=== PATIENT | male | born 1935 | race Caucasian/White ===

== ENCOUNTER 2020-11-06 16:29 | Emergency (ER) | payer OTHER ==
[~2020-11-06] VITALS: Ht 165.1 cm; Wt 81.6 kg
--- NOTE | 2020-11-06 16:30 | NUR ---
Patient wheelchair assisted to bed 11.
[2020-11-06 16:31] VITALS: BP 174/104
--- NOTE | 2020-11-06 17:00 | NUR ---
85/M brought in to ER by daughter with c/o shortness of breath. Daughter states patient has a chronic cough due to emphysema diagnosis but states he was coughing more than usual since last night. Daughter states patient stated he felt unwell this morning and his oxygen was reading in the low 80's on their home pulse oximeter. Patient appears slightly anxious and tachypneic, placed in gown on court recording monitor, patient oxygen saturation 94% on room air.
--- NOTE | 2020-11-06 17:04 | NUR ---
industrial technology education teacher at pt bedside.
[2020-11-06] MEDS ORDERED: PRED20TA5 PO (17:59)
--- NOTE | 2020-11-06 18:10 | NUR ---
dPatient discharged with v/s stable. Written and verbal after care instructions given and explained. Patient alert, oriented and verbalized understanding of instructions. Ambulatory with steady gait. All questions addressed prior to discharge. ID band removed. Patient advised to follow up with PMD. Rx of Prednisone given. Patient educated on indication of medication including possible reaction and side effects. Opportunity to ask questions provided and answered.
[2020-11-06 18:12] VITALS: BP 139/62
== END 2020-11-06 18:10 | disposition home or self-care (01) ==
LOC: MED 16:29
DX: J44.9 Chronic obstructive pulmonary disease, unspecified (principal); I10 Essential (primary) hypertension; Z98.890 Other specified postprocedural states
CPT/HCPCS: 71045; 99283

== ENCOUNTER 2022-04-18 12:11 | Inpatient (IN) | payer OTHER ==
[~2022-04-18] VITALS: Ht 162.6 cm; Wt 74.4 kg
[~2022-04-18 12:11] MED LIST: PRED20TA5 PO
[2022-04-18 12:20] VITALS: BP 159/66
--- NOTE | 2022-04-18 13:02 | NUR ---
PT W/C ASSISTED TO BED 1.
--- NOTE | 2022-04-18 13:06 | NUR ---
87/M WHEELCHAIR ASSISTED TO BED C/O SOB AND DIFFICULTY BREATHING ONSET 4 DAYS ACCOMPANIED BY HEADACHE AND COUGH. DENIES CHEST PAIN OR DIZZINESS. DENIES NVD OR FEVER. AAO4, ON CHILD WELFARE CONSULTANT AND ROOM AIR. PMH: EMPHYSEMA, CORONARY BYPASS SURGERY
--- NOTE | 2022-04-18 13:08 | NUR ---
EKG ALREADY DONE
--- NOTE | 2022-04-18 13:10 | NUR ---
BLOOD DRAWN BY FIELD COLLECTOR
[2022-04-18 13:26] LABS: HEMATOCRIT 36.9 % (36-52); HEMOGLOBIN 12.2 g/dL (12.0-18.0); MEAN CORPUSCULAR HEMOGLOBIN 32 pg (27-31); MEAN CORPUSCULAR HGB CONC 33 g/dL (33-37); MEAN CORPUSCULAR VOLUME 96.3 fL (80-94); PLATELET COUNT (AUTO) 60 K/uL (140-450); RED BLOOD CELL COUNT(AUTO) 3.83 MIL/uL (4.20-6.10); RED CELL DISTRIBUTION WIDTH 14.5 % (11.6-13.7); WHITE BLOOD COUNT (AUTO) 3.3 K/uL (4.8-10.8)
[2022-04-18 13:37] LABS: ALBUMIN 3.5 g/dL (3.4-5.0); ANION GAP 12.8 (8-16); ASPARTATE AMINOTRANSFERASE 21 U/L (15-37); CARBON DIOXIDE 29.8 mmol/L (21-32); CHLORIDE 102 mmol/L (98-107); CREATININE 1.5 mg/dL (0.6-1.3); GLUCOSE 199 mg/dL (74-106); POTASSIUM 4.6 mmol/L (3.5-5.1); SODIUM SERUM 140 mmol/L (136-145); TOTAL BILIRUBIN 0.4 mg/dL (0.0-1.0); UREA NITROGEN, BLOOD 19 mg/dL (7-18)
[2022-04-18 13:50] LABS: EOSINOPHILS % (MANUAL) 2 % (0-4); LYMPHOCYTES % (MANUAL) 18 % (20-46); MONOCYTES % (MANUAL) 8 % (5-12)
[2022-04-18] MEDS ORDERED: methylPREDNISolone SS 125 MG/2 ML VIAL IVP ONE (14:25)
[2022-04-18] MEDS ORDERED: ALBUTEROL SULFATE/IPRATROPIU 3 ML SOL IH ONE (14:25)
[2022-04-18] MEDS ORDERED: ASPIRIN 325 MG TAB PO ONE (14:30)
--- NOTE | 2022-04-18 14:34 | NUR ---
MICA COLLECTED AND SENT TO LAB
--- NOTE | 2022-04-18 14:49 | NUR ---
RT AT BEDSIDE FOR BR TX
[2022-04-18] MEDS ORDERED: CITA10TA11 PO (15:43)
[2022-04-18] MEDS ORDERED: METO25TE2 PO (15:43)
[2022-04-18] MEDS ORDERED: LOSA50TA66 PO (15:43)
[2022-04-18] MEDS ORDERED: APIX2.5 PO (15:43)
[2022-04-18] MEDS ORDERED: FURO-572 PO (15:43)
[2022-04-18] MEDS ORDERED: SIMV-372 PO (15:43)
[2022-04-18] MEDS ORDERED: ALBUTEROL 0.083% 2.5 MG/3 ML NEBU INH PRN (16:15)
--- NOTE | 2022-04-18 16:15 | NUR ---
Patient will be admitted to care of DR ALFARO. Admited to TELE. Will go to room 115. Belongings list completed. Report to CAMILLA CARMONA.
[2022-04-18] MEDS ORDERED: MAG SULF 2000 MG/WATER PREMIX 50 ML IV PRN (16:20)
[2022-04-18] MEDS ORDERED: POTASSIUM CHLORIDE 10 MEQ TABER PO PRN (16:20)
[2022-04-18] MEDS ORDERED: LORazepam 2 MG/ML VIAL IVP PRN (16:20)
[2022-04-18] MEDS ORDERED: ZOLPIDEM 10 MG TAB PO PRN (16:20)
[2022-04-18] MEDS ORDERED: DOCUSATE SODIUM 100 MG GELCAP PO PRN (16:20)
[2022-04-18] MEDS ORDERED: MORPHINE SULFATE 2 MG/ML SYR IVP PRN (16:20)
[2022-04-18] MEDS ORDERED: ONDANSETRON 4 MG/2 ML VIAL IVP PRN (16:20)
[2022-04-18] MEDS ORDERED: ACETAMINOPHEN 325 MG TAB PO PRN (16:20)
[2022-04-18 17:50] VITALS: BP 158/74
--- NOTE | 2022-04-18 17:50 | NUR ---
Admitted pt. from ED. transported via gurney. pt. is alert and oriented to name, place and situation. slovak speaking.pt. is Covid +, came in with c/o SOB. on O2 @3lpm via NC. pt. denies any difficulty breathing. assessment done and documented.pt encouraged to call staff if needed. verbalized understanding.
[2022-04-18 20:00] VITALS: BP 109/89
[2022-04-19] VITALS: BP 113/80
[2022-04-19 04:00] VITALS: BP 165/86
[2022-04-19 06:56] LABS: BASOPHILS % (AUTO) 0.2 % (0.0-2.0); HEMATOCRIT 37.4 % (36-52); HEMOGLOBIN 12.4 g/dL (12.0-18.0); LYMPHOCYTES # (AUTO) 0.5 K/uL (2.0-11.5); LYMPHOCYTES % (AUTO) 19.3 % (20.5-51.1); MEAN CORPUSCULAR HEMOGLOBIN 32 pg (27-31); MEAN CORPUSCULAR HGB CONC 33 g/dL (33-37); MEAN CORPUSCULAR VOLUME 96.3 fL (80-94); MONOCYTES # (AUTO) 0.1 K/uL (0.8-1.0); MONOCYTES % (AUTO) 4.8 % (1.7-9.3); NEUTROPHILS # (AUTO) 2.2 K/uL (1.8-7.7); NEUTROPHILS % (AUTO) 75.7 % (42.2-75.2); PLATELET COUNT (AUTO) 59 K/uL (140-450); RED BLOOD CELL COUNT(AUTO) 3.88 MIL/uL (4.20-6.10); RED CELL DISTRIBUTION WIDTH 14.5 % (11.6-13.7); WHITE BLOOD COUNT (AUTO) 2.8 K/uL (4.8-10.8)
--- NOTE | 2022-04-19 07:20 | NUR ---
PATIENT ALERT ABLE TO RESPONDS VERBALLY THAI SPEAKING. PATIENT ON 3 L/MIN VIA NASAL CANULA NO CONGESTION NOTED. IV SITE ON LEFT AC AMBROSE 20 SALINE LOCK. ALL SAFETY MEASURE IN PLACE.
[2022-04-19 07:42] LABS: ANION GAP 13.3 (8-16); CARBON DIOXIDE 28.6 mmol/L (21-32); CHLORIDE 104 mmol/L (98-107); CREATININE 1.3 mg/dL (0.6-1.3); GLUCOSE 150 mg/dL (74-106); POTASSIUM 4.9 mmol/L (3.5-5.1); SODIUM SERUM 141 mmol/L (136-145); UREA NITROGEN, BLOOD 20 mg/dL (7-18)
[2022-04-19 08:00] VITALS: BP 143/74
[2022-04-19] MEDS: LOSARTAN 50 MG TAB PO SCH (09:29)
[2022-04-19] MEDS: FUROSEMIDE 20 MG TAB PO SCH (09:30)
[2022-04-19] MEDS: ASCORBIC ACID 500 MG TAB PO SCH (09:30)
[2022-04-19] MEDS: METOPROLOL SUCCINATE 50 MG TABER PO SCH (09:31)
[2022-04-19] MEDS: CITALOPRAM 20 MG TAB PO SCH (09:31)
--- NOTE | 2022-04-19 09:36 | NUR ---
PATIENT FINISHED EATING BREAKFAST TOLERATED 90 % OF HIS MEAL. GIVEN DUE MEDICATION TOLERATED WELL.
--- NOTE | 2022-04-19 09:45 | NUR ---
PATIENT COMPLAIN OF STOMACH PAIN DR. ALFARO AWARE.
--- NOTE | 2022-04-19 10:25 | NUR ---
PATIENT HAS BEEN SCREENED AND CATEGORIZED MODERATE NUTRITION RISK. PATIENT WILL BE SEEN WITHIN 3-5 DAYS OF ADMISSION. 04/18/22-04/23/22 REVIEWED BY L[address]A JOR[address]EN RD
[2022-04-19] MEDS: DEXAMETHASONE 4 MG/ML VIAL IVP SCH (10:27)
--- NOTE | 2022-04-19 11:27 | NUR ---
ASSISTED PATIENT TO DO ADL'S. NOTED WITH HARD TIME BREATHING WITH ACTIVITY. ENCOURAGE TO REST AND TAKE HIS TIME. DROPLET ISOLATION OBSERVE.
--- NOTE | 2022-04-19 11:59 | NUR ---
PATIENT HAS NEW ORDER FOR PROTONIX PULLED FROM [facility] AND GAVE TO PATTIE CARMONA TO GIVE TO PATIENT.
[2022-04-19 12:00] VITALS: BP 141/62
[2022-04-19] MEDS: PANTOPRAZOLE 40 MG INJ VIAL IVP SCH (12:23)
--- NOTE | 2022-04-19 14:09 | NUR ---
DC PLANNING PATIENT IN ISOLATION FOR COVID-19, THEREFORE SW OUTREACHED TO PATIENTS DAUGHTER CONCHITA AYERS, TO GATHER COLLATERAL INFORMATION. PEÑA REPORTS THAT PATIENT RESIDES IN A SINGLE STORY HOME WITH HER AT THE ADDRESS LISTED ON FILE. CONCHITA IS PATIENT EMERGENCY CONTACT AND AIDS IN CARING FOR PT. CONCHITA REPORTS THAT PT MEETS WITH PCP, JAMIE HIGH, NEED, LAST VISIT; 2 WEEKS AGO. PATIENT IS REPORTED TO BE MEDICATION COMPLIANT AND DENIES BARRIERS IN ACCESS TO NEEDED MEDICATIONS. PATIENT REPORTS RECEIVING MEDICATION FROM [facility] IN [place], WHEN NEEDED. PATIENT IS REPORTED TO BE INDEPENDENT WITH OCCASIONAL USE OF FWW. PATIENT UTILIZES O2 AT HOME. PATIENT REQUIRES SOME ASSISTANCE WITH ADL'S WHICH PTS DAUGHTER, CONCHITA, AIDS WITH. NO MENTAL HEALTH/SUBSTANCE USE HX REPORTED. CONCHITA REPORTED ADEQUATE FAMILY SUPPORT. PATIENT IS REPORTED TO HAVE ADEQUATE FOOD IN THE HOME AND DENIES BARRIERS IN ACCESS TO FOOD. CONCHITA REPORTS DC PLAN IS FOR PATIENT TO RETURN HOME WITH DAUGHTER PROVIDING TRANSPORTATION WHEN MEDICALLY STABLE. CONCHITA DENIES HX OF HH, SNF PLACEMENT, DIALYSIS [place], HOSPICE SERVICES.
--- NOTE | 2022-04-19 14:30 | NUR ---
PUT NEW BATTERY FOR PATIENT TELEBOX PATIENT SITTING ON CHAIR NEAR THE WINDOW ON STABLE CONDITION.
[2022-04-19 16:00] VITALS: BP 145/72
[2022-04-19] MEDS ORDERED: remdesivir COMMUNICATION ORDER 1 EA MISC MC PRN (18:15)
--- NOTE | 2022-04-19 19:00 | NUR ---
PATIENT DONE EATING IV ANTIBIOTIC GIVEN BY RN NO ADVERSE REACTION NOTED. PATIENT REMOVING HIS OXYGEN NASAL CANULA TOLERATED WELL FROM TIME TO TIME DROPLET ISOLATION OBSERVE. CALL LIGHT WITH IN EASY REACH.
--- NOTE | 2022-04-19 19:38 | NUR ---
PT WAS FOUND SITING ON EDGE OF BED WITH NO PULSE OX, ON RA SATING 92%. PT WAS PUT BACK INTO BED AND ON 2LNC, WITH PULSE OX PLUGGED IN.
--- NOTE | 2022-04-19 19:43 | NUR ---
GAVE REPORT TONIGHT SHIFT NURSE LEIGH FOR CONTINUITY OF CARE.
[2022-04-19 20:00] VITALS: BP 156/76
[2022-04-19] MEDS ORDERED: remdesivir CLINICAL MONITORING 1 EA MISC MC PRN (21:00)
[2022-04-19] MEDS ORDERED: REMDESIVIR. 200 MG in NACL 0.9% 100 ML IV SCH ×2 (21:00→21:30)
--- NOTE | 2022-04-19 21:37 | NUR ---
REMDESIVIR ADMINISTERED PER MD ORDERED.
[2022-04-20] VITALS: BP 122/72
--- NOTE | 2022-04-20 00:05 | NUR ---
PATIENT PULLED OUT IV LINE. PATIENT IS ALERT VERBALLY RESPONSIVE IN INDIAN. ABLE TO COMMUNICATE WITH HIS NEEDS. NO S/S OF RESPIRATORY DISTRESS. ON 3L NC SATING AT 99%. AMBULATORY. CALL LIGHT WITHIN REACH. ALL SAFETY MEASURES IN PLACE. Addendum: 04/20/22 at 0726 by Sarah Morris RN RN PATIENT REFUSED IV INSERTION.
--- NOTE | 2022-04-20 03:25 | NUR ---
PATIENT AWAKE, KEEP ON PULLING OUT TELE MONITOR. REINSTRUCTED NOT TO PULL OUT TELE MONITOR.
[2022-04-20 04:00] VITALS: BP 112/62
--- NOTE | 2022-04-20 07:24 | NUR ---
ENDORSED PATIENT TO DAY SHIFT NURSE CAN FOR CONTINUITY OF CARE.
--- NOTE | 2022-04-20 07:30 | NUR ---
RECEIVED REPORT FROM NIGHTSHIFT KRISTINE ABRAHAM AND STATES PT PULLED OUT IV 7.5 HOURS AGO WITH NO ATTEMPT TO RESTART IV. NOT NOTIFIED. PT A/O X4. 3L NC. RR EVEN & UNLABORED. REGULAR DIET. TELE, SR. SKIN INTACT. ON DROPLET PRECAUTION FOR COVID +. NEEDS ALL MET AT THIS TIME. ALL SAFETY MEASURES IN PLACE.
[2022-04-20 07:56] LABS: BASOPHILS % (AUTO) 0.1 % (0.0-2.0); HEMATOCRIT 36.4 % (36-52); HEMOGLOBIN 12.3 g/dL (12.0-18.0); LYMPHOCYTES # (AUTO) 0.8 K/uL (2.0-11.5); LYMPHOCYTES % (AUTO) 13.2 % (20.5-51.1); MEAN CORPUSCULAR HEMOGLOBIN 32 pg (27-31); MEAN CORPUSCULAR HGB CONC 34 g/dL (33-37); MEAN CORPUSCULAR VOLUME 94.9 fL (80-94); MONOCYTES # (AUTO) 0.5 K/uL (0.8-1.0); MONOCYTES % (AUTO) 8.2 % (1.7-9.3); NEUTROPHILS # (AUTO) 4.7 K/uL (1.8-7.7); NEUTROPHILS % (AUTO) 78.5 % (42.2-75.2); PLATELET COUNT (AUTO) 64 K/uL (140-450); RED BLOOD CELL COUNT(AUTO) 3.84 MIL/uL (4.20-6.10); RED CELL DISTRIBUTION WIDTH 14.3 % (11.6-13.7)
[2022-04-20 08:00] VITALS: BP 115/73
--- NOTE | 2022-04-20 08:00 | NUR ---
STARTED NEW IV INSERTION ON RFA #22 X1 ATTEMPT WITH POSITIVE BLOOD RETURN, FLUSH WITH 10 ML NS, TEGADERM APPLIED. PT TOLERATED WELL. PT REPOSITIONED. HOB ELEVATED. ON 3L NC. IN NO ACUTE DISTRESS. DENIES PAIN AT THIS TIME. DROPLET PRECAUTION IN PLACE. ALL SAFETY MEASURES IN PLACE.
[2022-04-20 08:53] LABS: ALBUMIN 3.2 g/dL (3.4-5.0); ANION GAP 13.2 (8-16); ASPARTATE AMINOTRANSFERASE 45 U/L (15-37); CARBON DIOXIDE 29.5 mmol/L (21-32); CHLORIDE 103 mmol/L (98-107); CREATININE 1.5 mg/dL (0.6-1.3); GLUCOSE 117 mg/dL (74-106); POTASSIUM 4.7 mmol/L (3.5-5.1); SODIUM SERUM 141 mmol/L (136-145); TOTAL BILIRUBIN 0.2 mg/dL (0.0-1.0); UREA NITROGEN, BLOOD 30 mg/dL (7-18)
[2022-04-20] MEDS: DEXAMETHASONE 4 MG/ML VIAL IVP SCH (09:23)
[2022-04-20] MEDS: CITALOPRAM 20 MG TAB PO SCH (09:24)
[2022-04-20] MEDS: FUROSEMIDE 20 MG TAB PO SCH (09:24)
[2022-04-20] MEDS: PANTOPRAZOLE 40 MG INJ VIAL IVP SCH (09:24)
[2022-04-20] MEDS: LOSARTAN 50 MG TAB PO SCH (09:24)
[2022-04-20] MEDS: METOPROLOL SUCCINATE 50 MG TABER PO SCH (09:25)
[2022-04-20] MEDS: ASCORBIC ACID 500 MG TAB PO SCH (09:25)
[2022-04-20 12:00] VITALS: BP 110/71
[2022-04-20 16:00] VITALS: BP 121/69
--- NOTE | 2022-04-20 18:00 | NUR ---
HOURLY ROUNDS CONDUCTED THROUGHOUT MY SHIFT.
--- NOTE | 2022-04-20 19:29 | NUR ---
REPORT GIVEN TO NIGHTSHIFT NURSEANNIE FOR CONTINUITY OF CARE.
[2022-04-20 20:00] VITALS: BP 151/76
--- NOTE | 2022-04-20 20:03 | NUR ---
GET THE REPORT FROM MORNING NURSE JIM , PATIENT IS LYING ON BED, PATIENT IS ALERT ORIENTED X4, PATIENT IS RECEIVING OXYGEN 2 LITER VIA NASAL CANULA, ALL FALL PRECAUTION MEASURE ARE IN PLACE, CALL LIGHT IS WITHIN THE REACH, WILL CONTINUE TO MONITOR PATIENT.
[2022-04-20] MEDS: REMDESIVIR. 100 MG in NACL 0.9% 100 ML IV SCH (20:39)
--- NOTE | 2022-04-20 21:37 | NUR ---
PATIENT IS LYING ON BED, VITAL SIGN IS WITHIN THE NORMAL RANGE, NO ANY COMPLAIN OF PAIN OR SHORTNESS OF BREATH AT THIS TIME, ALL SCHEDULE MEDICATION IS GIVEN PER DOCTOR ORDER, CALL LIGHT IS WITHIN THE REACH, WILL CONTINUE TO MONITOR PATIENT.
[2022-04-21] VITALS (7 sets, daily range): BP systolic 136–157; BP diastolic 56–76
--- NOTE | 2022-04-21 00:44 | NUR ---
VITAL SIGN IS WITHIN THE NORMAL RANGE, PATIENT IS LYING ON BED, NO ANY COMPLAIN OF PAIN OR SHORTNESS OF BREATH AT THIS TIME, CALL LIGHT IS WITHIN THE REACH, WILL CONTINUE TO MONITOR PATIENT.
--- NOTE | 2022-04-21 04:03 | NUR ---
PATIENT AWAKE IN THE BED. NO COMPLAINTS OF PAIN, IN NO APPARENT DISTRESS. CALL LIGHT WITHIN REACH. WILL CONTINUE TO MONITOR.
--- NOTE | 2022-04-21 04:45 | NUR ---
VITAL SIGN IS WITHIN THE NORMAL RANGE, NO ANY COMPLAIN OF PAIN OR SOB AT THIS TIME, CALL LIGHT IS WITHIN THE REACH, WILL CONTINUE TO MONITOR PATIENT.
[2022-04-21 07:00] LABS: HEMATOCRIT 35.3 % (36-52); HEMOGLOBIN 11.9 g/dL (12.0-18.0); LYMPHOCYTES # (AUTO) 0.9 K/uL (2.0-11.5); LYMPHOCYTES % (AUTO) 16.9 % (20.5-51.1); MEAN CORPUSCULAR HEMOGLOBIN 32 pg (27-31); MEAN CORPUSCULAR HGB CONC 34 g/dL (33-37); MEAN CORPUSCULAR VOLUME 95.1 fL (80-94); MONOCYTES # (AUTO) 0.4 K/uL (0.8-1.0); NEUTROPHILS # (AUTO) 3.9 K/uL (1.8-7.7); NEUTROPHILS % (AUTO) 75.1 % (42.2-75.2); PLATELET COUNT (AUTO) 61 K/uL (140-450); RED BLOOD CELL COUNT(AUTO) 3.72 MIL/uL (4.20-6.10); RED CELL DISTRIBUTION WIDTH 14.3 % (11.6-13.7); WHITE BLOOD COUNT (AUTO) 5.2 K/uL (4.8-10.8)
[2022-04-21 07:18] LABS: ALBUMIN 3.1 g/dL (3.4-5.0); ANION GAP 11.3 (8-16); ASPARTATE AMINOTRANSFERASE 41 U/L (15-37); CARBON DIOXIDE 31.1 mmol/L (21-32); CHLORIDE 103 mmol/L (98-107); CREATININE 1.4 mg/dL (0.6-1.3); GLUCOSE 111 mg/dL (74-106); POTASSIUM 4.4 mmol/L (3.5-5.1); SODIUM SERUM 141 mmol/L (136-145); TOTAL BILIRUBIN 0.2 mg/dL (0.0-1.0)
[2022-04-21 07:26] LABS: UREA NITROGEN, BLOOD 34 mg/dL (7-18)
--- NOTE | 2022-04-21 07:36 | NUR ---
GAVE REPORT TO THE MORNING NURSE STFEFI FOR CONTINUOS OF CARE, PATIENT IS STABLE.
--- NOTE | 2022-04-21 07:37 | NUR ---
RECEIVED REPORT FROM HORTICULTURAL FARMER NURSE FOR CONTINUITY OF CARE. PT IN BED RESTING AT THIS TIME. RESPIRATIONS ARE EVEN AND UNLABORED. PT IS ON 2L 02 VIA NC. NO SIGNS OF DISTRESS NOTED. NO COMPLAINTS OF PAIN OR DISCOMFORT. PT IS ALERT AND ORIENTED X4, ABLE TO VERBALIZE NEEDS, ABLE TO FOLLOW COMMANDS. GUYANESE SPEAKING. ABD IS NONTENDER, NONDISTENDED WITH BOWEL SOUNDS PRESENT. PT IS CONTINENT OF BOWEL AND BLADDER. NO COMPLAINTS OF DYSURIA OR DIFFICULTY PASSING STOOL. PT IS COVID POSITIVE, ON ISOLATION. CALL LIGHT WITHIN REACH. ALL SAFETY MEASURES IN PLACE. WILL CONTINUE TO MONITOR.
--- NOTE | 2022-04-21 08:00 | NUR ---
Patient's Plan of Care was discussed and reviewed with ADAPTIVE PHYSICAL EDUCATION TEACHER:
--- NOTE | 2022-04-21 08:10 | NUR ---
CHECKED ON PT HE IS SLEEPING. NO RESPIRATORY DISTRESS NOTED. HR60 SPO2 100% 2L NC .WILL CONTINUE TO MONITOR.
[2022-04-21] MEDS: CITALOPRAM 20 MG TAB PO SCH (09:18)
[2022-04-21] MEDS: ASCORBIC ACID 500 MG TAB PO SCH (09:18)
[2022-04-21] MEDS: LOSARTAN 50 MG TAB PO SCH (09:18)
[2022-04-21] MEDS: METOPROLOL SUCCINATE 50 MG TABER PO SCH (09:19)
[2022-04-21] MEDS: FUROSEMIDE 20 MG TAB PO SCH (09:20)
[2022-04-21] MEDS: PANTOPRAZOLE 40 MG INJ VIAL IVP SCH (09:21)
[2022-04-21] MEDS: DEXAMETHASONE 4 MG/ML VIAL IVP SCH (09:23)
--- NOTE | 2022-04-21 09:24 | NUR ---
ADMINISTERED ALL SCHEDULED MEDICATIONS. EDUCATED PT ON MEDS ADMINISTERED. PT VERBALIZED UNDERSTANDING. RN TO ADMINISTER IVP MEDICATIONS.
--- NOTE | 2022-04-21 11:56 | NUR ---
WENT TO DO ROUNDS ON PT. PT IN BED WATCHING TELEVISION. NO SIGNS OF PAIN OR DISCOMFORT. NO SIGNS OF DISTRESS. CALL LIGHT WITHIN REACH. ALL SAFETY MEASURES IN PLACE. WILL CONTINUE TO MONITOR.
--- NOTE | 2022-04-21 14:46 | NUR ---
PT CALLED, STATED HE WOULD LIKE STAFF TO FIX HIS BEDDING. ASSISTED WITH CHANGING BEDDING AND CHANGING PT HOSPITAL GOWN. PT TOLERATED WELL. WILL CONTINUE TO MONITOR.
--- NOTE | 2022-04-21 17:05 | NUR ---
DID ROUNDS ON PT. PT IN BED WATCHING TELEVISION. NO SIGNS OF DISTRESS. WILL CONTINUE TO MONITOR.
--- NOTE | 2022-04-21 19:22 | NUR ---
ENDORSED PT TO MACHINE STONE POLISHER NURSE FOR CONTINUITY OF CARE. PT IS STABLE.
--- NOTE | 2022-04-21 19:40 | NUR ---
PT WAS FOUND WITH NO O2, SATING 95%. PT WAS PLACED BACK ON 2LNC AND SATING 98%.
[2022-04-21] MEDS: REMDESIVIR. 100 MG in NACL 0.9% 100 ML IV SCH (21:30)
--- NOTE | 2022-04-21 22:06 | NUR ---
PER BOILER COVERER HELPER . PT'S HEART TRACING - AFIB - ON REMDESIVIR TIV - BP 147/76 , HR 74 , RR20 , 02 SAT 98% , PT . C/O URINE OUT PUT - WILL REFER TO DR. ALFARO . Addendum: 04/21/22 at 2215 by Pascale Carver RN PER DR. ALFARO IVF BOLUS 1L NSS STAT - I CLARIFYING THE ORDER 2X TO DR. ALFARO - SHE TEXTED YES [address] ALFARO PERSPECTIVE PT IS DEHYDRATED . CHARGE NURSE NATAN PARR . Addendum: 04/21/22 at 2216 by Pascale Carver RN WILL CARRY OUT THE ORDER.
[2022-04-21] MEDS ORDERED: NACL 0.9% 1,000 ML IV ONE (22:20)
--- NOTE | 2022-04-21 22:34 | NUR ---
ON IV BOLUS - INSTRUCT PT . USE URINAL INSTEAD OF GO TO REST ROOM BEC . I HAVE TO MEASURE AND ASSESS HIS U.O - PT VERBALIZES UNDERSTANDING . CALL LIGHT WITHIN REACH . ON TELE MONITOR , WILL CONT . TO MONITOR . Addendum: 04/21/22 at 2236 by Pascale Carver RN URINAL WITHIN REACH .
[2022-04-22] VITALS (10 sets, daily range): BP systolic 87–122; BP diastolic 45–66
--- NOTE | 2022-04-22 00:33 | NUR ---
DORIAN BLEVINS LVN TAKING V/S , ALTHOUGH PT O2 SAT IS 99% , BUT PER PT HE HAS SOB - REQUESTING BREATHING TREATMENT . HX COPD . Addendum: 04/22/22 at 0035 by Pascale Carver RN REFERRED TO RT - PER RT SHE WILL COME TO CHECK THE PT . WILL CONT. TO MONITOR.
--- NOTE | 2022-04-22 02:00 | NUR ---
ROUNDS , PT. RESTING ON BED ,ON TELE MONITOR , ON O2 AT 2LPM/NC , CALL LIGHT / URINAL WITHIN REACH . PT VOIDED THRU URINAL - AMOUNT 300CC Addendum: 04/22/22 at 0526 by Pascale Carver RN THE NUMBERS 300 IN THE ABOVE NURSE'S NOTE IS AN ERROR ENTRY , INSTEAD OF 150CC - ANTIONE
--- NOTE | 2022-04-22 04:54 | NUR ---
BP RE CHECK 87/45 , HR 51 O2 SAT 97 % , REFER TO DR. ALFARO Addendum: 04/22/22 at 0458 by Pascale Carver RN PER DR. ALFARO TRANSFER PT TO ICU AND CARDIO CONSULT , HOLD THE REMDESIVIR - WILL CARRY OUT .
--- NOTE | 2022-04-22 04:58 | NUR ---
DOUBLE CHECK THE BP AGAIN ON THE R ARM 99/ 39 , ON L ARM 110/54 , PT IS RESTING ON BED ASYMPTOMATIC THE MAIN CONCERN OF THE PT IS HE HAS STILL SMALL AMOUNT OF URINE - ONLY 150CC SINCE 7PM UPTO THIS TIME INSPITE OF BOLUS IVF EARLIER .- WILL RE REFER TO DR. ALFARO . Addendum: 04/22/22 at 0502 by Pascale Carver RN PER DR. TORRES HOLD ICU TRANSFER , TRUCKING CONTRACTOR CONSULT , REMDESIVIR , AND ALL BP MEDS - WILL CARRY OUT AND ENDORSE .
--- NOTE | 2022-04-22 06:35 | NUR ---
BP RE CHECK 137/ 57 , HR 57 , WILL CNT. TO MONITOR , O2 SAT 99% , CALL LIGHT / URINAL WITHIN REACH .
--- NOTE | 2022-04-22 06:57 | NUR ---
WHEN I ENTERING TO PT'S ROOM TO DO BLADDER SCAN , I FOUND PT . PEEING THRU URINAL , URINE OUT 450 , DENIES ANY ABDL. DISCOMFORT OR BLADDER DISTENTION , ABD. SOFT - WILL ENDORSE . Addendum: 04/22/22 at 0701 by Pascale Carver RN U.O 450 CC
[2022-04-22 07:11] LABS: ALBUMIN 2.8 g/dL (3.4-5.0); ANION GAP 10.7 (8-16); ASPARTATE AMINOTRANSFERASE 37 U/L (15-37); CHLORIDE 106 mmol/L (98-107); CREATININE 1.3 mg/dL (0.6-1.3); GLUCOSE 128 mg/dL (74-106); POTASSIUM 4.7 mmol/L (3.5-5.1); SODIUM SERUM 143 mmol/L (136-145); TOTAL BILIRUBIN 0.3 mg/dL (0.0-1.0); UREA NITROGEN, BLOOD 40 mg/dL (7-18)
[2022-04-22 07:18] LABS: HEMATOCRIT 35.8 % (36-52); LYMPHOCYTES # (AUTO) 0.6 K/uL (2.0-11.5); LYMPHOCYTES % (AUTO) 13.9 % (20.5-51.1); MEAN CORPUSCULAR HEMOGLOBIN 32 pg (27-31); MEAN CORPUSCULAR HGB CONC 33 g/dL (33-37); MEAN CORPUSCULAR VOLUME 95.8 fL (80-94); MONOCYTES # (AUTO) 0.4 K/uL (0.8-1.0); MONOCYTES % (AUTO) 7.5 % (1.7-9.3); NEUTROPHILS # (AUTO) 3.7 K/uL (1.8-7.7); NEUTROPHILS % (AUTO) 78.6 % (42.2-75.2); PLATELET COUNT (AUTO) 55 K/uL (140-450); RED BLOOD CELL COUNT(AUTO) 3.74 MIL/uL (4.20-6.10); RED CELL DISTRIBUTION WIDTH 14.4 % (11.6-13.7); WHITE BLOOD COUNT (AUTO) 4.7 K/uL (4.8-10.8)
--- NOTE | 2022-04-22 07:26 | NUR ---
GIVING UPDATE TO DR. ALFARO - I INFORMED HER SHE ORDERED HOLD REMDESIVIR , BP MEDS INCLUDING LASIX - SHE TEXTED OK NO FURTHER ORDERS .
--- NOTE | 2022-04-22 07:28 | NUR ---
ENDORSED PT FOR CONT. OF CARE . CALL LIGHT WITHIN REACH .
[2022-04-22] MEDS: DEXAMETHASONE 4 MG/ML VIAL IVP SCH (09:31)
[2022-04-22] MEDS: ASCORBIC ACID 500 MG TAB PO SCH (09:32)
[2022-04-22] MEDS: PANTOPRAZOLE 40 MG INJ VIAL IVP SCH (09:32)
[2022-04-22] MEDS: CITALOPRAM 20 MG TAB PO SCH (09:32)
--- NOTE | 2022-04-22 20:00 | NUR ---
REMOVED FROM TELE BOX , IV NEEDLE REMOVE , NEEDLE INTACT , MIN. BLEEDING . PUT PT ON HIS [PORTABLE O2 AT 2LPM/NC - INFORMED PT'S DAUGHTER THAT THE PORTABLE 02 IS GOING TO LOW BAT . PER PT.'S DAUGHTER SAID THEY ONLY 10 TO 15 MIN. AWAY FROM HERE AND ONCE THEY GO HOME SHE WILL RE CHARGE IT . INSTRUCT TO THEM IF ANY THING PT'S DOES NOT FEELS RIGHT GO TO NEAREST ER . PT. PT'S DAUGHTER VERBALIZES UNDERSTANDING . ALL CONCERN AND QUESTIONS ANSWERED .
--- NOTE | 2022-04-22 20:05 | NUR ---
DISCHARGE IN STABLE CONDITION BP 123/78 , HR 88 , RR 20 , O2 SAT 98 % , T 98.3 , SERVICE DELIVERY ANALYST BY HIS DAUGTHER , BY [employer] . DISCHARGED PACKET , HOME MEDS INSTRUCTED , SIGNED BY DAUGHTER . GIVEN TO PT'S DAUGTHER . Addendum: 04/22/22 at 2227 by Pascale Carver RN PT. PT'S DAUGHTER VERBALIZES UNDERSTANDING REGARDS TO HOME INSTRUCTIONS AND HOME MEDS .
== END 2022-04-22 20:05 | disposition home or self-care (01) | DRG 871 ==
LOC: MED 12:11 → MTU 15:47
PROVIDERS: ADMIT Family Medicine; ATTEND Family Medicine
PROC: XW033E5 Introduction of Remdesivir Anti-infective into Peripheral Vein, Percutaneous Approach, New Technology Group 5 (ICD-10-PCS; principal; 2022-04-19)
DX: A41.9 Sepsis, unspecified organism (principal); J96.21 Acute and chronic respiratory failure with hypoxia; U07.1 COVID-19; N17.0 Acute kidney failure with tubular necrosis; J44.1 Chronic obstructive pulmonary disease with (acute) exacerbation; E78.5 Hyperlipidemia, unspecified; I25.10 Atherosclerotic heart disease of native coronary artery without angina pectoris; E83.51 Hypocalcemia; I50.9 Heart failure, unspecified; I11.0 Hypertensive heart disease with heart failure; Z95.1 Presence of aortocoronary bypass graft; Z87.891 Personal history of nicotine dependence; Z79.01 Long term (current) use of anticoagulants
CPT/HCPCS: 36415; 71045; 80048; 80053; 83735; 83880; 84484; 85025; 87081; 93005; 94640; 96374; 99285; C9113; J0696; J1100; J2405; J2930; J7060; J7613; Q0092

== ENCOUNTER 2022-06-22 14:43 | Emergency (ER) | payer OTHER ==
[~2022-06-22] VITALS: Ht 163.8 cm; Wt 71.7 kg
[~2022-06-22 14:43] MED LIST changes: +APIX2.5 PO; +CITA10TA11 PO; +FURO-572 PO; +LOSA50TA66 PO; +METO25TE2 PO; -PRED20TA5 PO; +SIMV-372 PO
[2022-06-22 14:48] VITALS: BP 112/62
[2022-06-22] MEDS ORDERED: ALBUTEROL SULFATE/IPRATROPIU 3 ML SOL IH ONE ×3 (15:20→18:03)
--- NOTE | 2022-06-22 15:36 | NUR ---
PATIENT PRESENTS TO ED WITH SHORTNESS OF BREATH . PT STATES HE AHS HX OF EMPHYSEMA AND COPD . DENIES N/V/D; SKIN IS PINK/WARM/DRY; AAOX4 WITH EVEN AND STEADY GAIT; LUNGS WITH RONCHI IN BILATERAL CORNELIUS, HR EVEN AND REGULAR; PT DENIES ANY FEVER AT THIS TIME; PATIENT STATES PAIN OF 0/10 AT THIS TIME; VSS; PATIENT POSITIONED FOR COMFORT; HOB ELEVATED; BEDRAILS UP X2; BED DOWN. ER MD MADE AWARE OF PT STATUS.
[2022-06-22] MEDS ORDERED: predniSONE 20 MG TAB PO ONE (16:05)
[2022-06-22] MEDS ORDERED: predniSONE 20 MG TAB ONE (17:50)
[2022-06-22] MEDS ORDERED: PRED20TA5 PO (17:53)
[2022-06-22] MEDS ORDERED: ALBU2.5V IH (17:53)
[2022-06-22 18:41] VITALS: BP 108/70
--- NOTE | 2022-06-22 18:42 | NUR ---
Patient discharged with v/s stable. Written and verbal after care instructions given and explained. Patient verbalized understanding. Ambulatory with steady gait. All questions addressed prior to discharge. Advised to follow up with PMD.
== END 2022-06-22 18:42 | disposition home or self-care (01) ==
LOC: MED 14:43
DX: J44.1 Chronic obstructive pulmonary disease with (acute) exacerbation (principal); Z20.822 Contact with and (suspected) exposure to COVID-19; I25.10 Atherosclerotic heart disease of native coronary artery without angina pectoris
CPT/HCPCS: 71046; 87426; 87804; 94640; 99284; J7512